=== PATIENT | female | born 1980 ===

== ENCOUNTER 2017-03-06 21:40 | Emergency (ER) | payer SELFPAY ==
[2017-03-06 22:03] VITALS: BP 146/95
[2017-03-07] MEDS ORDERED: FLEXERIL PO ONE (02:35)
[2017-03-07] MEDS ORDERED: NORCO 5/325 PO ONE (02:35)
[2017-03-07 02:45] LABS: Bilirubin,Urine NEG (Negative); Blood,Urine SM (Negative); Ketones,Urine NEG (Negative); Leukocyte Esterase,Urine NEG (Negative); Mucus,Urine 3+ /HPF; Nitrite,Urine NEG (Negative); Protein,Urine <15 mg/dL mg/dL (Negative); Renal Epithelial Cells,Urine <1 /LPF
--- NOTE | 2017-03-07 03:21 | Emergency Department Report ---
ED Back Pain/Injury HPI - General Chief Complaint: Back Pain/Injury Stated Complaint: LOWER BACK PAIN Source: patient Limitations: No Limitations - History of Present Illness Initial Comments: 36 year old female presents to ED with lower back pain radiating down right leg x3-4 days. patient is stable, neurologically intact and in no acute distress. patient denies dysuria, vaginal problems. patient states LMP end of Jan 2017. patient's is extremely aggressive towards medical personnel and yelling at hospital staff. patient's is arguing that they have been waiting in ED room over 8 hours which is inaccurate. imaging has been ordered in triage prior to me seeing this patient. MD Complaint: back pain -: Gradual, days(s) (3) Similar Symptoms Previously: Yes Radiation: right leg Severity: mild Consistency: constant - Related Data Allergies Allergy/AdvReac Type Severity Reaction Status Date / Time No Known Allergies Allergy Unverified 03/06/17 22:03 ED Review of Systems ROS: Stated complaint: LOWER BACK PAIN Other details as noted in HPI Constitutional: denies: chills, fever Eyes: denies: eye pain, eye discharge, vision change ENT: denies: ear pain, throat pain Respiratory: denies: cough, shortness of breath, wheezing Cardiovascular: denies: chest pain, palpitations Endocrine: no symptoms reported Gastrointestinal: denies: abdominal pain, nausea, diarrhea Genitourinary: denies: urgency, dysuria, discharge Musculoskeletal: denies: back pain, joint swelling, arthralgia Skin: denies: rash, lesions Neurological: denies: headache, weakness, numbness, paresthesias, confusion, abnormal gait, vertigo Psychiatric: denies: anxiety, depression Hematological/Lymphatic: denies: easy bleeding, easy bruising ED Past Medical Hx - Past Medical History Additional medical history: back injury-2015 - Surgical History Additional Surgical History: tubiligation - Social History Smoking Status: Never Smoker Substance Use Type: None ED Physical Exam - General Limitations: No Limitations General appearance: alert, in no apparent distress - Head Head exam: Present: atraumatic, normocephalic - Eye Eye exam: Present: normal appearance, EOMI - ENT ENT exam: Present: normal exam, mucous membranes moist - Neck Neck exam: Present: normal inspection, full ROM. Absent: tenderness - Respiratory Respiratory exam: Present: normal lung sounds bilaterally. Absent: respiratory distress, wheezes, rales, rhonchi - Cardiovascular Cardiovascular Exam: Present: regular rate, normal rhythm. Absent: systolic murmur, diastolic murmur, rubs, gallop - GI/Abdominal GI/Abdominal exam: Present: soft, normal bowel sounds. Absent: distended, tenderness, guarding - Extremities Exam Extremities exam: Present: normal inspection, full ROM. Absent: tenderness - Back Exam Back exam: Present: normal inspection - Neurological Exam Neurological exam: Present: alert, oriented X3 - Psychiatric Psychiatric exam: Present: normal affect, normal mood - Skin Skin exam: Present: warm, dry, intact, normal color. Absent: rash ED Course Vital Signs 03/06/17 22:01 Temperature 98 F Pulse Rate 93 H Respiratory 18 Rate Blood Pressure 146/95 O2 Sat by Pulse 100 Oximetry ED Medical Decision Making - Medical Decision Making 36 year old female presents to ED with lower back pain. patient and patient's have decided to leave AMA without notifying or speaking to me. patient is neurologically intact and has full capacity to make decisions. Critical care attestation.: If time is entered above; I have spent that time in minutes in the direct care of this critically ill patient, excluding procedure time. ED Disposition Clinical Impression: Lower back pain Qualifiers: Chronicity: acute Back pain laterality: unspecified Sciatica presence: with sciatica Sciatica laterality: sciatica of right side Qualified Code(s): M54.41 - Lumbago with sciatica, right side Disposition: DC-07 LEFT AGAINST MED ADVICE Is pt being admited?: No Does the pt Need Aspirin: No Condition: Stable
--- NOTE | 2017-03-07 07:58 | XRay Report ---
LUMBOSACRAL SPINE, 3 VIEWS: History: Back pain, injury Findings: The vertebral bodies, disk spaces and posterior elements are intact. No compression deformity or malalignment. Early disc space narrowing at L5-S1 is noted. The SI joints are symmetric and unremarkable. Impression: Early degenerative changes at L5-S1. No acute injury identified.
== END 2017-03-07 02:52 | disposition left against medical advice (07) ==
LOC: ED 21:40
DX: M54.5 Low back pain (principal)
CPT/HCPCS: 72100; 81001; 99284